=== PATIENT | male | born 1990 | race Caucasian/White ===

== ENCOUNTER 2024-12-13 09:49 | Outpatient (CLI) | payer MEDICARE, OTHER, SELFPAY ==
--- NOTE | ~2024-12-13 | XR_ITS ---
EXAMINATION:[id number], XR thoracic spine 3V DATE: 12/13/2024 10:28 INDICATION: Lower cervical and upper thoracic spine pain with left arm radiculopathy TECHNIQUE: 1. AP, lateral and odontoid views of the cervical spine are provided. 2. AP, lateral and lateral swimmer's views of the thoracic spine were obtained. COMPARISON: None FINDINGS: Cervical spine: Mild disc height loss at the C5-C6 and C6-C7 with associated minimal reversal of the normal lordosis at this location. There is mild uncovertebral osteoarthritis bilaterally at C5-C6 and on the right at C6-C7. Cervical facet joints are unremarkable. Odontoid is intact. Normal atlantoaxial interval. Ve rtebral body heights are normal. Prevertebral soft tissues are normal. Thoracic spine: 7 degrees thoracic dextrocurvature. Vertebral body and disc heights are normal. Visualized portion of lungs are clear with no evident pleural effusion or pneumothorax. Heart size normal. IMPRESSION: 1. Mild lower cervical spondylosis. 2. 7 degrees mid thoracic dextrocurvature. Reviewed, dictated and finalized at location B. IMPRESSION: 1. Mild lower cervical spondylosis. 2. 7 degrees mid thoracic dextrocurvature.
== END 2024-12-13 09:50 | disposition home or self-care (01) ==
PROVIDERS: PCP Physician Assistant; Visit Provider Physician Assistant
DX: M47.22 Other spondylosis with radiculopathy, cervical region (principal)
CPT/HCPCS: 72040; 72072